=== PATIENT | female | born 1965 | race Caucasian/White ===

== ENCOUNTER 2021-08-12 16:28 | Observation (INO) | payer BC ==
[~2021-08-12] VITALS: Ht 167.6 cm; Wt 91.0 kg
--- NOTE | 2021-08-12 16:28 | NUR ---
PT TO ROOM 13 VIA WC ABLE TO STAND AND TRANSFER SELF WITHOUT ASSIST.
[2021-08-12 17:08] LABS: HEMOGLOBIN 13.2 g/dl (12.0-16.0); IMMATURE GRANULOCYTES 0.1 % (0.0-5.0); MEAN CELL VOLUME 89.2 fL CALC (80.0-100.0); MEAN CORPUSCULAR HGB 30.2 pG CALC (26.0-32.0); MEAN CORPUSCULAR HGB CONC 33.8 g/dL CAL (32.0-36.0); NEUT# 3.7 thou/uL (2.00-7.15); RED BLOOD COUNT 4.37 mill/uL (4.20-5.60); RED CELL DISTRI WIDTH 12.1 % (11.5-15.5)
[2021-08-12 17:24] LABS: ALBUMIN 4.1 g/dL (3.2-5.0); ALKALINE PHOSPHATASE 83 u/l (38-126); ANION GAP 16 (6-22 (CALC)); BILIRUBIN, TOTAL 0.4 mg/dL (0.0-1.4); BUN 14 mg/dL (7-17); BUN/CREATININE RATIO 16 (12-20 (CALC)); CARBON DIOXIDE 22 mmol/l (22-30); CHLORIDE 105 mmol/l (95-108); CREATININE 0.8 mg/dL (0.5-1.0); GFR > 60 ML/MIN (>=60 (CALC)); GFR FOR AFR.AMER. > 60 ML/MIN (>=60 (CALC)); MAGNESIUM 1.9 mg/dL (1.6-2.3); POTASSIUM 4.2 mmol/l (3.5-5.1); SGOT/AST 29 u/l (14-36); SODIUM 139 mmol/l (137-146); TOTAL PROTEIN 7.3 g/dL (6.3-8.2)
[2021-08-12 17:55] LABS: TSH, 3RD GENERATION 2.66 uIU/mL (0.47 - 4.68)
--- NOTE | 2021-08-12 19:25 | NUR ---
TELEPHONE REPORT RECEIVE FROM Trinity MCCLURE RN IN ED. ICU #6 PREPARED TO RECEIVE PT.
--- NOTE | 2021-08-12 19:30 | NUR ---
REPORT CALLED TO AMBER ASHBY
--- NOTE | 2021-08-12 19:55 | NUR ---
PT TRANSPORTED TO ICU MED SURG OVERFLOW VIA WHEELCAHIR, BELONGINGS SENT WIHT PT.
--- NOTE | 2021-08-12 19:55 | NUR ---
PT ARRIVES TO UNIT VIA WC, ACCOMPANIED BY Adonis PICKERING RN. PT AMBULATORY TO BED. CONNECTED TO EDGE BANDER HAND. ADMITTED TO ICU#6 A MS OVERFLOW WITH TELE.
[2021-08-12 20:00] VITALS: BP 131/57
--- NOTE | 2021-08-12 20:30 | NUR ---
FROZEN DINNER TRAY PREPARED AND PROVIDED TO PT.
--- NOTE | 2021-08-12 20:41 | NUR ---
SPOKE WITH PT'S OVER PHONE TO PROVIDE UPDATES ON PT'S STATUS AND LOCATION REQUESTED BY PT.
[2021-08-13] VITALS: BP 105/50
--- NOTE | 2021-08-13 00:15 | NUR ---
Tung VILLA CPT IN ROOM COLLECTING TROPONIN. WARM BLANKETS PROVIDED PER PT'S REQUEST.
[2021-08-13 04:00] VITALS: BP 114/60
--- NOTE | 2021-08-13 06:08 | NUR ---
Tung VILLA CPT AT BEDSIDE COLLECTING LABWORK.
[2021-08-13 06:20] LABS: HEMATOCRIT 37.6 % (37.0-47.0); HEMOGLOBIN 12.4 g/dl (12.0-16.0); IMMATURE GRANULOCYTES 0.2 % (0.0-5.0); MEAN CELL VOLUME 91.7 fL CALC (80.0-100.0); MEAN CORPUSCULAR HGB 30.2 pG CALC (26.0-32.0); NEUT# 2.36 thou/uL (2.00-7.15); RED BLOOD COUNT 4.1 mill/uL (4.20-5.60); RED CELL DISTRI WIDTH 12.2 % (11.5-15.5)
[2021-08-13 06:51] LABS: ALBUMIN 3.6 g/dL (3.2-5.0); ALKALINE PHOSPHATASE 66 u/l (38-126); ANION GAP 15 (6-22 (CALC)); BILIRUBIN, TOTAL 0.5 mg/dL (0.0-1.4); BUN 13 mg/dL (7-17); BUN/CREATININE RATIO 16 (12-20 (CALC)); CALCULATED LDLCHOLESTEROL 133 mg/dL (62-129 (CALC)); CARBON DIOXIDE 23 mmol/l (22-30); CHLORIDE 106 mmol/l (95-108); CHOLESTEROL HDL RATIO 6.1 (<4.4 (CALC)); CREATININE 0.8 mg/dL (0.5-1.0); GFR > 60 ML/MIN (>=60 (CALC)); GFR FOR AFR.AMER. > 60 ML/MIN (>=60 (CALC)); HDL CHOLESTEROL 32 mg/dL (>=40); SGOT/AST 23 u/l (14-36); SODIUM 140 mmol/l (137-146); TOTAL CHOLESTEROL 199 mg/dl (0-199); TOTAL PROTEIN 6.2 g/dL (6.3-8.2); TOTAL TRIGLYCERIDES 167 mg/dl (30-149); VLDL CHOLESTROL 33 mg/dl (2-49 (CALC))
--- NOTE | 2021-08-13 07:10 | NUR ---
pt resting in bed with eyes closed; no apparent distress noted; easily aroused; pt offers no complaints; denies pain/chest pain, n/v; resp even and unlabored; lungs clear bilat; skin color wnl; ra; hr reg; strong pulses; no edema noted; sb on the monitor; abd soft with bs present; no bm noted per narrative writer; no urine to inspect at this time; brp; #20 rfa saline locked; no redness or edema noted at site; plan of care explained; call light within reach; will continue to monitor
--- NOTE | 2021-08-13 08:00 | NUR ---
awake in bed eating breakfast; offers no complaints; no apparent distress noted; sr on monitor; iv intact and patent; call light within reach; will continue to monitor
[2021-08-13 08:15] VITALS: BP 144/83
--- NOTE | 2021-08-13 08:54 | NUR ---
medicated for complaints of headache and nausea; pt admits to having nausea and headaches since covid + 07/30/21; iv flushed and patent; will continue to monitor
--- NOTE | 2021-08-13 10:05 | NUR ---
awake in bed; spouse at bedside; sr on monitor; call light within reach; will continue to monitor
--- NOTE | 2021-08-13 11:01 | NUR ---
Dr Rebolledo present at bedside to assess pt and discuss plan of care
[2021-08-13] MEDS ORDERED: OZEMPIC2 MG/1.5 M (11:06)
[2021-08-13] MEDS ORDERED: ZOFRAN4 MG/TAB PO (11:07)
[2021-08-13 11:30] VITALS: BP 138/70
--- NOTE | 2021-08-13 11:50 | NUR ---
Discharge instructions given. Patient verbalizes understanding of same. Discharged in stable condition via Wheelchair to Home with spouse. All belongings sent with pt.
[2021-08-13] MEDS ORDERED: TOPROL XL25 M1 PO (14:00)
== END 2021-08-13 11:50 | disposition home or self-care (01) | DRG 310 ==
LOC: ED 16:28 → ED-I 17:55 → ED 18:14 → ICU 18:15
PROVIDERS: Family Medicine; Nurse Practitioner; ADMIT Internal Medicine; ATTEND Internal Medicine
DX: I47.1 Supraventricular tachycardia (principal); E11.9 Type 2 diabetes mellitus without complications; I10 Essential (primary) hypertension; M54.12 Radiculopathy, cervical region; Z79.899 Other long term (current) drug therapy; Z86.16 Personal history of COVID-19; Z20.822 Contact with and (suspected) exposure to COVID-19
CPT/HCPCS: J1650

== ENCOUNTER 2022-04-12 07:48 | Day surgery (SDC) | payer BC ==
[~2022-04-12] VITALS: Ht 165.1 cm; Wt 97.5 kg
[~2022-04-12 07:48] MED LIST: FLUOXETINE20 MG PO; HYDROXYZ PAM25 MG PO; METOPROL TAR25 MG PO; OZEMPIC2 MG/1.5 M IM; TOPROL XL25 M1 PO; ZOFRAN4 MG/TAB PO
[2022-04-12 10:02] VITALS: BP 103/67
== END 2022-04-12 10:20 | disposition home or self-care (01) | DRG 951 ==
LOC: ENDO 07:48
PROVIDERS: ATTEND Surgery
PROC: 0DBM8ZX Excision of Descending Colon, Via Natural or Artificial Opening Endoscopic, Diagnostic (ICD-10-PCS; principal; 2022-04-12)
DX: Z12.11 Encounter for screening for malignant neoplasm of colon (principal); D12.4 Benign neoplasm of descending colon; E11.9 Type 2 diabetes mellitus without complications; Z79.85 Long-term (current) use of injectable non-insulin antidiabetic drugs

== ENCOUNTER 2023-08-23 13:39 | Emergency (ER) | payer OTHER ==
[~2023-08-23] VITALS: Ht 165.1 cm; Wt 97.0 kg
[2023-08-23] MEDS ORDERED: LIDOcaine HCl 1% (Local Anesth.) 20 ML VIAL STI STA (14:11)
[2023-08-23] MEDS ORDERED: POVIDONE IODINE 0.5 OZ/BTL TOP ONE (14:15)
[2023-08-23] MEDS ORDERED: SODIUM CHLORIDE 500 ML BTL IR ONE (14:15)
[2023-08-23] MEDS ORDERED: BUPIVACAINE HCL PF 0.5 % 50 MG/10 ML SDV STI ONE (14:15)
[2023-08-23] MEDS ORDERED: Diph, Acellular Pertussis, Tet 0.5 ML/VIAL (Tdap) SDV IM ONE (14:15)
[2023-08-23] MEDS ORDERED: NEOMYCIN-BACITRACIN-POLYMYXIN 0.5 GM/PAK PAK TOP ONE (14:15)
[2023-08-23] MEDS ORDERED: KEFLEX500 MG PO (15:01)
[2023-08-23 15:27] VITALS: BP 116/61
== END 2023-08-23 15:32 | disposition home or self-care (01) | DRG 605 ==
LOC: ED 13:39
PROC: 0HQGXZZ Repair Left Hand Skin, External Approach (ICD-10-PCS; principal; 2023-08-23)
DX: S61.213A Laceration without foreign body of left middle finger without damage to nail, initial encounter (principal); I10 Essential (primary) hypertension; Y92.007 Garden or yard of unspecified non-institutional (private) residence as the place of occurrence of the external cause; Y93.H2 Activity, gardening and landscaping; W29.3XXA Contact with powered garden and outdoor hand tools and machinery, initial encounter